=== PATIENT | male | born 1940 | race Caucasian/White ===

== ENCOUNTER 2019-11-12 11:54 | Inpatient (IN) ==
[2019-11-14] MEDS ORDERED: Mag Hydrox/Al Hydrox/Simeth 30 ML UDC PO PRN (14:55)
[2019-11-14] MEDS ORDERED: Ondansetron ODT 4 MG TAB.RAPDIS PO PRN (14:59)
[2019-11-14] MEDS ORDERED: *HR* Dextrose 50 % in Water (Vial) 50 ML VIAL IVP PRN (15:03)
[2019-11-14] MEDS ORDERED: Dextrose Gel 15 GM/37.5 ML TUBE PO PRN ×2 (15:03)
[2019-11-14] MEDS ORDERED: D5% in Water 1,000 ML IVC PRN (15:03)
[2019-11-14] MEDS: Insulin LISPRO 300 UNITS/3 ML VIAL SQ SCH ×2 (16:59→21:23)
[2019-11-14] MEDS: carvediloL 6.25 MG TABLET PO SCH (17:07)
[2019-11-14] MEDS: *HR* OxyCODONE/APAP 5/325 TABLET PO PRN (19:00)
[2019-11-14] MEDS: Acetaminophen 325 MG TABLET PO PRN (21:22)
[2019-11-14] MEDS: Gabapentin 300 MG CAPSULE PO SCH (21:23)
[2019-11-14] MEDS: traZODone 50 MG TABLET PO SCH (22:04)
[2019-11-15] MEDS: Acetaminophen 325 MG TABLET PO PRN (05:36)
[2019-11-15 07:37] LABS: Basophils % 0.5 %; Eosinophils # 0.1 K/mcL (0.0-0.6); Eosinophils % 1.5 %; Hemoglobin 13.9 g/dL (12.9-16.9); Immature Granulocytes % 0.7 % (0-4); Lymphocytes # 1.5 K/mcL (0.6-4.6); Lymphocytes % 25.5 %; Mean Corpuscular HGB Conc 33.1 g/dL (31.6-35.5); Mean Corpuscular Hemoglobin 30.8 pg (28.0-33.3); Mean Corpuscular Volume 93.1 fL (83.0-100.0); Monocytes # 1.1 K/mcL (0.0-1.3); Neutrophils # 3.1 K/mcL (1.6-8.9); Platelet Count 132 K/mcL (140-400); Red Blood Count 4.51 M/mcL (4.19-5.50); Red Cell Distribution Width 13.7 % (11.5-14.5); Segmented Neutrophils % 52.8 %; White Blood Count 5.9 K/mcL (4.3-11.1)
[2019-11-15 07:45] LABS: INR 1.3; Prothrombin Time 14.6 Seconds (9.4-12.1)
[2019-11-15 07:58] LABS: Alanine Aminotransferase 5 Units/L (7-52); Albumin 3.4 g/dL (3.5-5.7); Albumin/Globulin Ratio 1.2 (1.1-2.2); Alkaline Phosphatase 51 Units/L (34-104); Aspartate Amino Transferase 12 Units/L (13-39); BUN/Creatinine Ratio 17 (6-26); Bilirubin,Total 0.9 mg/dL (0.3-1.0); Blood Urea Nitrogen 20 mg/dL (8-23); Calcium 9.2 mg/dL (8.6-10.3); Carbon Dioxide 29 mEq/L (23-29); Chloride 102 mEq/L (98-107); Globulin 2.9 g/dL (2.4-3.5); Glucose 133 mg/dL (70-105); Osmolality,Calculated 287 (280-300); Potassium 3.7 mEq/L (3.5-5.1); Sodium 136 mEq/L (136-145); Total Protein 6.3 g/dL (6.4-8.9); eGFR For African Americans > 60 (> 60); eGFR For Non-African Americans > 60 (> 60)
[2019-11-15] MEDS: *HR* OxyCODONE/APAP 5/325 TABLET PO PRN ×2 (08:03→19:42)
[2019-11-15] MEDS: carvediloL 6.25 MG TABLET PO SCH ×2 (08:03→16:52)
[2019-11-15] MEDS: Insulin LISPRO 300 UNITS/3 ML VIAL SQ SCH ×4 (09:34→21:39)
[2019-11-15] MEDS: PREDNISOLONE ACETATE 1% OP SCH (16:50)
[2019-11-15] MEDS: Gabapentin 300 MG CAPSULE PO SCH (19:43)
[2019-11-15] MEDS: traZODone 50 MG TABLET PO SCH (23:14)
[2019-11-16] MEDS: Acetaminophen 325 MG TABLET PO PRN ×3 (00:35→16:05)
[2019-11-16] MEDS: *HR* OxyCODONE/APAP 5/325 TABLET PO PRN ×2 (06:00→20:07)
[2019-11-16] MEDS: *HR* Enoxaparin 40 MG/0.4 ML SYRINGE SQ SCH (06:12)
[2019-11-16] MEDS: Insulin LISPRO 300 UNITS/3 ML VIAL SQ SCH (07:44)
[2019-11-16] MEDS: Finasteride 5 MG TABLET PO SCH (09:42)
[2019-11-16] MEDS: carvediloL 6.25 MG TABLET PO SCH ×2 (09:42→16:01)
[2019-11-16] MEDS: traZODone 50 MG TABLET PO SCH (20:06)
[2019-11-16] MEDS: Gabapentin 300 MG CAPSULE PO SCH (20:06)
[2019-11-17] MEDS: *HR* Enoxaparin 40 MG/0.4 ML SYRINGE SQ SCH (06:55)
[2019-11-17] MEDS: carvediloL 6.25 MG TABLET PO SCH ×2 (08:00→16:12)
[2019-11-17] MEDS: Finasteride 5 MG TABLET PO SCH (08:00)
[2019-11-17] MEDS: *HR* OxyCODONE/APAP 5/325 TABLET PO PRN ×2 (08:01→20:45)
[2019-11-17] MEDS: PREDNISOLONE ACETATE 1% OP SCH (08:02)
[2019-11-17] MEDS: Acetaminophen 325 MG TABLET PO PRN (16:12)
[2019-11-17] MEDS ORDERED: *HR* OxyCODONE Immed Rel 5 MG TABLET PO ONE (16:22)
[2019-11-17] MEDS: Melatonin 3 MG TABLET PO PRN (20:44)
[2019-11-17] MEDS: Gabapentin 300 MG CAPSULE PO SCH (20:44)
[2019-11-17] MEDS: traZODone 50 MG TABLET PO SCH (20:44)
[2019-11-18] MEDS: *HR* Enoxaparin 40 MG/0.4 ML SYRINGE SQ SCH (06:34)
[2019-11-18] MEDS: Finasteride 5 MG TABLET PO SCH (09:26)
[2019-11-18] MEDS: carvediloL 6.25 MG TABLET PO SCH ×2 (09:26→17:05)
[2019-11-18] MEDS: *HR* OxyCODONE/APAP 5/325 TABLET PO PRN (09:26)
[2019-11-18] MEDS: Gabapentin 300 MG CAPSULE PO SCH (20:16)
[2019-11-18] MEDS: traZODone 50 MG TABLET PO SCH (20:17)
[2019-11-19] MEDS: *HR* OxyCODONE/APAP 5/325 TABLET PO PRN ×2 (03:35→20:24)
[2019-11-19] MEDS: *HR* Enoxaparin 40 MG/0.4 ML SYRINGE SQ SCH (05:05)
[2019-11-19] MEDS: carvediloL 6.25 MG TABLET PO SCH ×2 (08:02→16:19)
[2019-11-19] MEDS: Finasteride 5 MG TABLET PO SCH (08:02)
[2019-11-19] MEDS: PREDNISOLONE ACETATE 1% OP SCH (08:03)
[2019-11-19] MEDS: Acetaminophen 325 MG TABLET PO PRN (11:57)
[2019-11-19] MEDS: Gabapentin 300 MG CAPSULE PO SCH (20:23)
[2019-11-19] MEDS: Melatonin 3 MG TABLET PO PRN (20:24)
[2019-11-19] MEDS: traZODone 50 MG TABLET PO SCH (20:24)
[2019-11-20] MEDS: *HR* Enoxaparin 40 MG/0.4 ML SYRINGE SQ SCH (04:49)
[2019-11-20 05:21] LABS: INR 1.3; Prothrombin Time 14.8 Seconds (9.4-12.1)
[2019-11-20] MEDS: *HR* OxyCODONE/APAP 5/325 TABLET PO PRN ×2 (09:25→22:08)
[2019-11-20] MEDS: Finasteride 5 MG TABLET PO SCH (09:25)
[2019-11-20] MEDS: carvediloL 6.25 MG TABLET PO SCH ×2 (09:25→17:28)
[2019-11-20] MEDS ORDERED: Doxycycline 100 MG CAPSULE PO SCH (12:30)
[2019-11-20] MEDS: *HR* Warfarin 5 MG TABLET PO SCH (17:28)
[2019-11-20] MEDS ORDERED: Warfarin perPT PO PRN (18:00)
[2019-11-20 18:43] LABS: Basophils # 0.1 K/mcL (0.0-0.2); Basophils % 0.7 %; Eosinophils # 0.1 K/mcL (0.0-0.6); Eosinophils % 1.3 %; Hematocrit 42.7 % (37.5-50.1); Hemoglobin 14.2 g/dL (12.9-16.9); Immature Granulocytes % 0.3 % (0-4); Lymphocytes # 1.8 K/mcL (0.6-4.6); Lymphocytes % 25.8 %; Mean Corpuscular HGB Conc 33.3 g/dL (31.6-35.5); Mean Corpuscular Volume 93.2 fL (83.0-100.0); Mean Platelet Volume 10.5 fL (9.4-12.4); Monocytes # 1.3 K/mcL (0.0-1.3); Monocytes % 18.6 %; Neutrophils # 3.7 K/mcL (1.6-8.9); Platelet Count 159 K/mcL (140-400); Red Blood Count 4.58 M/mcL (4.19-5.50); Red Cell Distribution Width 13.1 % (11.5-14.5); Segmented Neutrophils % 53.3 %; White Blood Count 6.9 K/mcL (4.3-11.1)
[2019-11-20] MEDS ORDERED: Piperacillin/Tazobactam 3.375 GM in 0.9 % Sodium Chloride Mini Bag 100 ML IVPB SCH (19:00)
[2019-11-20 19:01] LABS: BUN/Creatinine Ratio 22 (6-26); Blood Urea Nitrogen 24 mg/dL (8-23); Calcium 9.3 mg/dL (8.6-10.3); Carbon Dioxide 34 mEq/L (23-29); Chloride 98 mEq/L (98-107); Glucose 107 mg/dL (70-105); Osmolality,Calculated 289 (280-300); Potassium 4.1 mEq/L (3.5-5.1); Sodium 137 mEq/L (136-145); eGFR For African Americans > 60 (> 60); eGFR For Non-African Americans > 60 (> 60)
[2019-11-20] MEDS ORDERED: Vancomycin 500 MG in 0.9 % Sodium Chloride Mini Bag 100 ML IVPB ONE (20:30)
[2019-11-20] MEDS: Gabapentin 300 MG CAPSULE PO SCH (20:31)
[2019-11-20] MEDS: traZODone 50 MG TABLET PO SCH (20:31)
[2019-11-20] MEDS: Melatonin 3 MG TABLET PO PRN (20:31)
[2019-11-20] MEDS: Piperacillin/Tazobactam 3.375 GM in 0.9 % Sodium Chloride Mini Bag 100 ML IVPB SCH (22:11)
[2019-11-21] MEDS: Piperacillin/Tazobactam 3.375 GM in 0.9 % Sodium Chloride Mini Bag 100 ML IVPB SCH ×3 (05:27→21:51)
[2019-11-21] MEDS: *HR* Enoxaparin 40 MG/0.4 ML SYRINGE SQ SCH (05:38)
[2019-11-21 06:06] LABS: INR 1.2
[2019-11-21 06:34] LABS: Thyroid Stimulating Hormone 1.578 mcIU/mL (0.340-5.600)
[2019-11-21] MEDS: Multivit/Ca/Min/Fe/FA 1 TAB TABLET PO SCH (08:50)
[2019-11-21] MEDS: Ascorbic Acid 500 MG TABLET PO SCH ×2 (08:50→20:19)
[2019-11-21] MEDS: Finasteride 5 MG TABLET PO SCH (08:51)
[2019-11-21] MEDS: carvediloL 6.25 MG TABLET PO SCH ×2 (08:51→16:17)
[2019-11-21] MEDS: Lactobacillus 1 EACH CAP.SPRINK PO SCH ×2 (08:51→20:15)
[2019-11-21] MEDS: *HR* OxyCODONE/APAP 5/325 TABLET PO PRN ×2 (09:52→23:07)
[2019-11-21] MEDS: Nystatin Ointment 15 GM TUBE TP SCH ×2 (09:54→20:21)
[2019-11-21] MEDS: PREDNISOLONE ACETATE 1% OP SCH (09:54)
[2019-11-21 13:56] LABS: Vitamin B12 295 pg/mL (250-1100); Vitamin D 25 Hydroxy 39 ng/mL (30-80)
[2019-11-21] MEDS: Acetaminophen 325 MG TABLET PO PRN (15:38)
[2019-11-21] MEDS ORDERED: Cyanocobalamin (B-12) 1,000 MCG/ML VIAL SQ ONE (16:28)
[2019-11-21] MEDS ORDERED: Vancomycin (wt based) 1,000 MG VIAL IVPB SCH (16:30)
[2019-11-21] MEDS: *HR* Warfarin 5 MG TABLET PO SCH (17:48)
[2019-11-21] MEDS: traZODone 50 MG TABLET PO SCH (20:17)
[2019-11-21] MEDS: Gabapentin 300 MG CAPSULE PO SCH (20:17)
[2019-11-22] MEDS: Piperacillin/Tazobactam 3.375 GM in 0.9 % Sodium Chloride Mini Bag 100 ML IVPB SCH ×3 (05:32→22:29)
[2019-11-22] MEDS: *HR* Enoxaparin 40 MG/0.4 ML SYRINGE SQ SCH (05:37)
[2019-11-22] MEDS: carvediloL 6.25 MG TABLET PO SCH ×2 (09:21→17:44)
[2019-11-22] MEDS: Multivit/Ca/Min/Fe/FA 1 TAB TABLET PO SCH (09:21)
[2019-11-22] MEDS: Lactobacillus 1 EACH CAP.SPRINK PO SCH ×2 (09:21→22:31)
[2019-11-22] MEDS: Finasteride 5 MG TABLET PO SCH (09:21)
[2019-11-22] MEDS: Cyanocobalamin (B-12) 1,000 MCG TABLET PO SCH (09:21)
[2019-11-22] MEDS: Ascorbic Acid 500 MG TABLET PO SCH ×2 (09:21→22:31)
[2019-11-22] MEDS: Nystatin Ointment 15 GM TUBE TP SCH ×2 (09:22→22:31)
[2019-11-22 09:25] LABS: INR 1.4; Prothrombin Time 15.4 Seconds (9.4-12.1)
[2019-11-22] MEDS: *HR* OxyCODONE/APAP 5/325 TABLET PO PRN ×2 (09:29→21:51)
[2019-11-22 09:36] LABS: BUN/Creatinine Ratio 13 (6-26); Blood Urea Nitrogen 16 mg/dL (8-23); Calcium 9.5 mg/dL (8.6-10.3); Carbon Dioxide 32 mEq/L (23-29); Chloride 99 mEq/L (98-107); Glucose 166 mg/dL (70-105); Osmolality,Calculated 291 (280-300); Potassium 4.2 mEq/L (3.5-5.1); Sodium 138 mEq/L (136-145); eGFR For African Americans > 60 (> 60); eGFR For Non-African Americans 57 (> 60)
[2019-11-22] MEDS: *HR* Warfarin 5 MG TABLET PO SCH (17:44)
[2019-11-22] MEDS: Gabapentin 300 MG CAPSULE PO SCH (22:30)
[2019-11-22] MEDS: traZODone 50 MG TABLET PO SCH (22:31)
[2019-11-23] MEDS: Piperacillin/Tazobactam 3.375 GM in 0.9 % Sodium Chloride Mini Bag 100 ML IVPB SCH ×3 (05:05→19:56)
[2019-11-23] MEDS: *HR* Enoxaparin 40 MG/0.4 ML SYRINGE SQ SCH (05:06)
[2019-11-23 06:39] LABS: INR 1.4; Prothrombin Time 15.6 Seconds (9.4-12.1)
[2019-11-23] MEDS: Multivit/Ca/Min/Fe/FA 1 TAB TABLET PO SCH (09:03)
[2019-11-23] MEDS: Finasteride 5 MG TABLET PO SCH (09:03)
[2019-11-23] MEDS: carvediloL 6.25 MG TABLET PO SCH ×2 (09:03→16:17)
[2019-11-23] MEDS: Ascorbic Acid 500 MG TABLET PO SCH ×2 (09:04→19:55)
[2019-11-23] MEDS: Lactobacillus 1 EACH CAP.SPRINK PO SCH ×2 (09:04→19:56)
[2019-11-23] MEDS: Cyanocobalamin (B-12) 1,000 MCG TABLET PO SCH (09:04)
[2019-11-23] MEDS: PREDNISOLONE ACETATE 1% OP SCH (09:05)
[2019-11-23] MEDS: Nystatin Ointment 15 GM TUBE TP SCH ×2 (09:05→19:56)
[2019-11-23] MEDS: *HR* OxyCODONE/APAP 5/325 TABLET PO PRN (12:06)
[2019-11-23] MEDS ORDERED: *HR* Warfarin 2.5 MG TABLET PO SCH (18:00)
[2019-11-23] MEDS ORDERED: *HR* Warfarin 3 MG TABLET PO ONE (18:00)
[2019-11-23] MEDS ORDERED: *HR* Warfarin 1 MG TABLET PO ONE (18:00)
[2019-11-23] MEDS: Acetaminophen 325 MG TABLET PO PRN (19:55)
[2019-11-23] MEDS: traZODone 50 MG TABLET PO SCH (19:55)
[2019-11-23] MEDS: Gabapentin 300 MG CAPSULE PO SCH (19:56)
[2019-11-24] MEDS: *HR* OxyCODONE/APAP 5/325 TABLET PO PRN ×2 (02:17→19:58)
[2019-11-24] MEDS: Piperacillin/Tazobactam 3.375 GM in 0.9 % Sodium Chloride Mini Bag 100 ML IVPB SCH ×3 (04:55→22:01)
[2019-11-24] MEDS: *HR* Enoxaparin 40 MG/0.4 ML SYRINGE SQ SCH (04:56)
[2019-11-24 06:01] LABS: INR 1.4; Prothrombin Time 15.6 Seconds (9.4-12.1)
[2019-11-24] MEDS: Cyanocobalamin (B-12) 1,000 MCG TABLET PO SCH (08:28)
[2019-11-24] MEDS: Nystatin Ointment 15 GM TUBE TP SCH ×2 (08:28→19:58)
[2019-11-24] MEDS: carvediloL 6.25 MG TABLET PO SCH ×2 (08:28→17:16)
[2019-11-24] MEDS: Ascorbic Acid 500 MG TABLET PO SCH ×2 (08:28→19:58)
[2019-11-24] MEDS: Multivit/Ca/Min/Fe/FA 1 TAB TABLET PO SCH (08:28)
[2019-11-24] MEDS: Lactobacillus 1 EACH CAP.SPRINK PO SCH ×2 (08:28→19:58)
[2019-11-24] MEDS: Finasteride 5 MG TABLET PO SCH (08:28)
[2019-11-24] MEDS ORDERED: Simethicone 80 MG TAB.CHEW PO PRN (14:44)
[2019-11-24] MEDS ORDERED: *HR* Warfarin 7.5 MG TABLET PO ONE (18:00)
[2019-11-24] MEDS: Gabapentin 300 MG CAPSULE PO SCH (19:58)
[2019-11-24] MEDS: traZODone 50 MG TABLET PO SCH (19:58)
[2019-11-24] MEDS: Acetaminophen 325 MG TABLET PO PRN (23:20)
[2019-11-25 05:46] LABS: INR 1.6; Prothrombin Time 17.8 Seconds (9.4-12.1)
[2019-11-25 05:59] LABS: eGFR For African Americans > 60 (> 60); eGFR For Non-African Americans > 60 (> 60)
[2019-11-25] MEDS: *HR* Enoxaparin 40 MG/0.4 ML SYRINGE SQ SCH (06:00)
[2019-11-25] MEDS: Piperacillin/Tazobactam 3.375 GM in 0.9 % Sodium Chloride Mini Bag 100 ML IVPB SCH (06:00)
[2019-11-25] MEDS ORDERED: Aminoglycoside Consult 1 EACH MC ONE (08:46)
[2019-11-25] MEDS: Finasteride 5 MG TABLET PO SCH (10:07)
[2019-11-25] MEDS: Multivit/Ca/Min/Fe/FA 1 TAB TABLET PO SCH (10:07)
[2019-11-25] MEDS: Lactobacillus 1 EACH CAP.SPRINK PO SCH ×2 (10:07→21:43)
[2019-11-25] MEDS: PREDNISOLONE ACETATE 1% OP SCH (10:08)
[2019-11-25] MEDS: carvediloL 6.25 MG TABLET PO SCH ×2 (10:08→16:45)
[2019-11-25] MEDS: Cyanocobalamin (B-12) 1,000 MCG TABLET PO SCH (10:08)
[2019-11-25] MEDS: Ascorbic Acid 500 MG TABLET PO SCH ×2 (10:08→21:43)
[2019-11-25] MEDS: Nystatin Ointment 15 GM TUBE TP SCH ×2 (10:09→22:01)
[2019-11-25] MEDS: *HR* OxyCODONE/APAP 5/325 TABLET PO PRN (15:04)
[2019-11-25] MEDS ORDERED: *HR* Warfarin 5 MG TABLET PO ONE (18:00)
[2019-11-25 18:17] LABS: Basophils # 0.1 K/mcL (0.0-0.2); Basophils % 0.9 %; Eosinophils # 0.2 K/mcL (0.0-0.6); Eosinophils % 2.5 %; Hematocrit 43.9 % (37.5-50.1); Hemoglobin 14.8 g/dL (12.9-16.9); Immature Granulocytes % 0.3 % (0-4); Lymphocytes # 1.8 K/mcL (0.6-4.6); Lymphocytes % 28.3 %; Mean Corpuscular HGB Conc 33.7 g/dL (31.6-35.5); Mean Corpuscular Hemoglobin 31.4 pg (28.0-33.3); Mean Platelet Volume 10.1 fL (9.4-12.4); Monocytes # 0.9 K/mcL (0.0-1.3); Monocytes % 14.2 %; Neutrophils # 3.4 K/mcL (1.6-8.9); Platelet Count 204 K/mcL (140-400); Red Blood Count 4.72 M/mcL (4.19-5.50); Red Cell Distribution Width 12.9 % (11.5-14.5); Segmented Neutrophils % 53.8 %; White Blood Count 6.3 K/mcL (4.3-11.1)
[2019-11-25] MEDS: Acetaminophen 325 MG TABLET PO PRN ×2 (18:48→23:03)
[2019-11-25] MEDS: Melatonin 3 MG TABLET PO PRN (21:43)
[2019-11-25] MEDS: Doxycycline 100 MG CAPSULE PO SCH (21:43)
[2019-11-25] MEDS: Gabapentin 300 MG CAPSULE PO SCH (21:43)
[2019-11-25] MEDS: traZODone 50 MG TABLET PO SCH (21:43)
[2019-11-26] MEDS: *HR* Enoxaparin 40 MG/0.4 ML SYRINGE SQ SCH (05:03)
[2019-11-26] MEDS: *HR* OxyCODONE/APAP 5/325 TABLET PO PRN ×2 (05:04→17:56)
[2019-11-26 05:31] LABS: Prothrombin Time 22.5 Seconds (9.4-12.1)
[2019-11-26] MEDS: carvediloL 6.25 MG TABLET PO SCH ×2 (09:40→17:56)
[2019-11-26] MEDS: Multivit/Ca/Min/Fe/FA 1 TAB TABLET PO SCH (09:40)
[2019-11-26] MEDS: Cyanocobalamin (B-12) 1,000 MCG TABLET PO SCH (09:40)
[2019-11-26] MEDS: Doxycycline 100 MG CAPSULE PO SCH ×2 (09:40→21:13)
[2019-11-26] MEDS: Lactobacillus 1 EACH CAP.SPRINK PO SCH ×2 (09:40→21:13)
[2019-11-26] MEDS: Ascorbic Acid 500 MG TABLET PO SCH ×2 (09:40→21:13)
[2019-11-26] MEDS: Finasteride 5 MG TABLET PO SCH (09:40)
[2019-11-26] MEDS: Nystatin Ointment 15 GM TUBE TP SCH ×2 (09:41→21:20)
[2019-11-26] MEDS ORDERED: *HR* Warfarin 5 MG TABLET PO ONE (18:00)
[2019-11-26] MEDS: traZODone 50 MG TABLET PO SCH (21:13)
[2019-11-26] MEDS: Melatonin 3 MG TABLET PO PRN (21:13)
[2019-11-26] MEDS: Gabapentin 300 MG CAPSULE PO SCH (21:13)
[2019-11-27] MEDS: *HR* Enoxaparin 40 MG/0.4 ML SYRINGE SQ SCH (04:24)
[2019-11-27] MEDS: Ascorbic Acid 500 MG TABLET PO SCH ×2 (07:25→20:09)
[2019-11-27] MEDS: Doxycycline 100 MG CAPSULE PO SCH ×2 (07:25→20:09)
[2019-11-27] MEDS: Finasteride 5 MG TABLET PO SCH (07:25)
[2019-11-27] MEDS: *HR* OxyCODONE/APAP 5/325 TABLET PO PRN ×2 (07:25→20:10)
[2019-11-27] MEDS: carvediloL 6.25 MG TABLET PO SCH ×2 (07:26→16:30)
[2019-11-27] MEDS: Multivit/Ca/Min/Fe/FA 1 TAB TABLET PO SCH (07:26)
[2019-11-27] MEDS: Lactobacillus 1 EACH CAP.SPRINK PO SCH ×2 (07:26→20:09)
[2019-11-27] MEDS: Nystatin Ointment 15 GM TUBE TP SCH ×2 (07:26→20:10)
[2019-11-27] MEDS: Cyanocobalamin (B-12) 1,000 MCG TABLET PO SCH (07:26)
[2019-11-27] MEDS: PREDNISOLONE ACETATE 1% OP SCH (07:30)
[2019-11-27] MEDS ORDERED: *HR* Warfarin 3 MG TABLET PO ONE (18:00)
[2019-11-27] MEDS: Gabapentin 300 MG CAPSULE PO SCH (20:09)
[2019-11-27] MEDS: Melatonin 3 MG TABLET PO PRN (20:09)
[2019-11-27] MEDS: traZODone 50 MG TABLET PO SCH (20:09)
[2019-11-28 05:45] LABS: INR 2.1; Prothrombin Time 23.5 Seconds (9.4-12.1)
[2019-11-28] MEDS: Finasteride 5 MG TABLET PO SCH (08:17)
[2019-11-28] MEDS: Lactobacillus 1 EACH CAP.SPRINK PO SCH ×2 (08:17→20:04)
[2019-11-28] MEDS: carvediloL 6.25 MG TABLET PO SCH ×2 (08:17→16:35)
[2019-11-28] MEDS: Doxycycline 100 MG CAPSULE PO SCH ×2 (08:17→20:04)
[2019-11-28] MEDS: *HR* OxyCODONE/APAP 5/325 TABLET PO PRN ×2 (08:17→20:13)
[2019-11-28] MEDS: Cyanocobalamin (B-12) 1,000 MCG TABLET PO SCH (08:17)
[2019-11-28] MEDS: Multivit/Ca/Min/Fe/FA 1 TAB TABLET PO SCH (08:17)
[2019-11-28] MEDS: Ascorbic Acid 500 MG TABLET PO SCH ×2 (08:17→20:05)
[2019-11-28] MEDS: Nystatin Ointment 15 GM TUBE TP SCH ×2 (08:20→20:14)
[2019-11-28] MEDS ORDERED: *HR* Warfarin 3 MG TABLET PO ONE (18:00)
[2019-11-28] MEDS: Gabapentin 300 MG CAPSULE PO SCH (20:05)
[2019-11-28] MEDS: traZODone 50 MG TABLET PO SCH (20:06)
[2019-11-28] MEDS: Melatonin 3 MG TABLET PO PRN (20:10)
[2019-11-29 06:08] LABS: INR 2.2; Prothrombin Time 25.2 Seconds (9.4-12.1)
[2019-11-29] MEDS: Ascorbic Acid 500 MG TABLET PO SCH ×2 (09:05→21:29)
[2019-11-29] MEDS: Cyanocobalamin (B-12) 1,000 MCG TABLET PO SCH (09:05)
[2019-11-29] MEDS: carvediloL 6.25 MG TABLET PO SCH ×2 (09:05→16:46)
[2019-11-29] MEDS: Doxycycline 100 MG CAPSULE PO SCH ×2 (09:05→21:27)
[2019-11-29] MEDS: Multivit/Ca/Min/Fe/FA 1 TAB TABLET PO SCH (09:05)
[2019-11-29] MEDS: *HR* OxyCODONE/APAP 5/325 TABLET PO PRN ×2 (09:05→18:23)
[2019-11-29] MEDS: Finasteride 5 MG TABLET PO SCH (09:06)
[2019-11-29] MEDS: Lactobacillus 1 EACH CAP.SPRINK PO SCH ×2 (09:06→21:27)
[2019-11-29] MEDS: Nystatin Ointment 15 GM TUBE TP SCH ×2 (09:06→21:31)
[2019-11-29] MEDS: PREDNISOLONE ACETATE 1% OP SCH (09:07)
[2019-11-29 09:45] LABS: Basophils % 0.7 %; Eosinophils # 0.1 K/mcL (0.0-0.6); Eosinophils % 1.5 %; Hematocrit 43.5 % (37.5-50.1); Hemoglobin 14.4 g/dL (12.9-16.9); Immature Granulocytes % 0.5 % (0-4); Lymphocytes # 1.2 K/mcL (0.6-4.6); Mean Corpuscular HGB Conc 33.1 g/dL (31.6-35.5); Mean Corpuscular Hemoglobin 30.8 pg (28.0-33.3); Mean Corpuscular Volume 92.9 fL (83.0-100.0); Monocytes % 16.7 %; Neutrophils # 3.5 K/mcL (1.6-8.9); Platelet Count 197 K/mcL (140-400); Red Blood Count 4.68 M/mcL (4.19-5.50); Red Cell Distribution Width 13.3 % (11.5-14.5); Segmented Neutrophils % 60.6 %; White Blood Count 5.8 K/mcL (4.3-11.1)
[2019-11-29 10:10] LABS: Alanine Aminotransferase 38 Units/L (7-52); Albumin 3.6 g/dL (3.5-5.7); Albumin/Globulin Ratio 1.2 (1.1-2.2); Alkaline Phosphatase 65 Units/L (34-104); Aspartate Amino Transferase 33 Units/L (13-39); BUN/Creatinine Ratio 21 (6-26); Bilirubin,Total 0.5 mg/dL (0.3-1.0); Blood Urea Nitrogen 23 mg/dL (8-23); Calcium 9.4 mg/dL (8.6-10.3); Carbon Dioxide 30 mEq/L (23-29); Chloride 99 mEq/L (98-107); Globulin 2.9 g/dL (2.4-3.5); Glucose 151 mg/dL (70-105); Osmolality,Calculated 285 (280-300); Sodium 134 mEq/L (136-145); Total Protein 6.5 g/dL (6.4-8.9); eGFR For African Americans > 60 (> 60); eGFR For Non-African Americans > 60 (> 60)
[2019-11-29] MEDS: Acetaminophen 325 MG TABLET PO PRN (16:46)
[2019-11-29] MEDS ORDERED: *HR* Warfarin 3 MG TABLET PO ONE (18:00)
[2019-11-29] MEDS: Gabapentin 300 MG CAPSULE PO SCH (21:28)
[2019-11-29] MEDS: traZODone 50 MG TABLET PO SCH (21:28)
[2019-11-29] MEDS: Melatonin 3 MG TABLET PO PRN (21:30)
[2019-11-30] MEDS: *HR* OxyCODONE/APAP 5/325 TABLET PO PRN ×4 (01:58→20:39)
[2019-11-30 05:57] LABS: INR 2.5
[2019-11-30] MEDS: Doxycycline 100 MG CAPSULE PO SCH ×2 (07:59→20:38)
[2019-11-30] MEDS: Ascorbic Acid 500 MG TABLET PO SCH ×2 (08:00→20:40)
[2019-11-30] MEDS: Finasteride 5 MG TABLET PO SCH (08:00)
[2019-11-30] MEDS: Multivit/Ca/Min/Fe/FA 1 TAB TABLET PO SCH (08:00)
[2019-11-30] MEDS: Cyanocobalamin (B-12) 1,000 MCG TABLET PO SCH (08:00)
[2019-11-30] MEDS: Lactobacillus 1 EACH CAP.SPRINK PO SCH ×2 (08:00→20:38)
[2019-11-30] MEDS: carvediloL 6.25 MG TABLET PO SCH ×2 (08:00→17:49)
[2019-11-30] MEDS: Nystatin Ointment 15 GM TUBE TP SCH ×2 (08:04→20:39)
[2019-11-30] MEDS ORDERED: *HR* Warfarin 5 MG TABLET PO ONE (18:00)
[2019-11-30] MEDS: Gabapentin 300 MG CAPSULE PO SCH (20:39)
[2019-11-30] MEDS: Melatonin 3 MG TABLET PO PRN (20:40)
[2019-11-30] MEDS: traZODone 50 MG TABLET PO SCH (20:41)
[2019-12-01 05:28] LABS: INR 2.5; Prothrombin Time 28.8 Seconds (9.4-12.1)
[2019-12-01] MEDS: *HR* OxyCODONE/APAP 5/325 TABLET PO PRN ×2 (06:24→16:47)
[2019-12-01] MEDS: Cyanocobalamin (B-12) 1,000 MCG TABLET PO SCH (09:21)
[2019-12-01] MEDS: Multivit/Ca/Min/Fe/FA 1 TAB TABLET PO SCH (09:21)
[2019-12-01] MEDS: Finasteride 5 MG TABLET PO SCH (09:21)
[2019-12-01] MEDS: Lactobacillus 1 EACH CAP.SPRINK PO SCH ×2 (09:21→21:01)
[2019-12-01] MEDS: Ascorbic Acid 500 MG TABLET PO SCH ×2 (09:21→21:06)
[2019-12-01] MEDS: carvediloL 6.25 MG TABLET PO SCH ×2 (09:21→16:47)
[2019-12-01] MEDS: Doxycycline 100 MG CAPSULE PO SCH ×2 (09:21→21:01)
[2019-12-01] MEDS: Nystatin Ointment 15 GM TUBE TP SCH ×2 (09:22→21:06)
[2019-12-01] MEDS: PREDNISOLONE ACETATE 1% OP SCH (09:25)
[2019-12-01] MEDS ORDERED: *HR* Warfarin 5 MG TABLET PO ONE (18:00)
[2019-12-01] MEDS: Gabapentin 300 MG CAPSULE PO SCH (21:02)
[2019-12-01] MEDS: traZODone 50 MG TABLET PO SCH (21:02)
[2019-12-01] MEDS: Melatonin 3 MG TABLET PO PRN (21:06)
[2019-12-02] MEDS: *HR* OxyCODONE/APAP 5/325 TABLET PO PRN ×2 (05:41→17:43)
[2019-12-02 05:49] LABS: INR 2.6; Prothrombin Time 29.9 Seconds (9.4-12.1)
[2019-12-02] MEDS: Multivit/Ca/Min/Fe/FA 1 TAB TABLET PO SCH (09:09)
[2019-12-02] MEDS: Finasteride 5 MG TABLET PO SCH (09:09)
[2019-12-02] MEDS: Cyanocobalamin (B-12) 1,000 MCG TABLET PO SCH (09:09)
[2019-12-02] MEDS: Lactobacillus 1 EACH CAP.SPRINK PO SCH ×2 (09:09→21:22)
[2019-12-02] MEDS: carvediloL 6.25 MG TABLET PO SCH ×2 (09:09→17:39)
[2019-12-02] MEDS: Ascorbic Acid 500 MG TABLET PO SCH ×2 (09:09→21:21)
[2019-12-02] MEDS: Doxycycline 100 MG CAPSULE PO SCH ×2 (09:09→21:22)
[2019-12-02] MEDS: Nystatin Ointment 15 GM TUBE TP SCH ×2 (11:36→21:23)
[2019-12-02] MEDS ORDERED: *HR* Warfarin 5 MG TABLET PO ONE (18:00)
[2019-12-02] MEDS: traZODone 50 MG TABLET PO SCH (21:21)
[2019-12-02] MEDS: Acetaminophen 325 MG TABLET PO PRN (21:22)
[2019-12-02] MEDS: Gabapentin 300 MG CAPSULE PO SCH (21:22)
[2019-12-03] MEDS: *HR* OxyCODONE/APAP 5/325 TABLET PO PRN ×3 (00:47→21:22)
[2019-12-03 06:17] LABS: INR 2.9; Prothrombin Time 32.6 Seconds (9.4-12.1)
[2019-12-03] MEDS: Cyanocobalamin (B-12) 1,000 MCG TABLET PO SCH (09:27)
[2019-12-03] MEDS: Multivit/Ca/Min/Fe/FA 1 TAB TABLET PO SCH (09:27)
[2019-12-03] MEDS: carvediloL 6.25 MG TABLET PO SCH ×2 (09:27→17:24)
[2019-12-03] MEDS: Doxycycline 100 MG CAPSULE PO SCH ×2 (09:27→20:11)
[2019-12-03] MEDS: Finasteride 5 MG TABLET PO SCH (09:27)
[2019-12-03] MEDS: Ascorbic Acid 500 MG TABLET PO SCH ×2 (09:28→20:13)
[2019-12-03] MEDS: Lactobacillus 1 EACH CAP.SPRINK PO SCH ×2 (09:28→20:11)
[2019-12-03] MEDS: Nystatin Ointment 15 GM TUBE TP SCH ×2 (09:28→20:15)
[2019-12-03] MEDS: PREDNISOLONE ACETATE 1% OP SCH (09:32)
[2019-12-03] MEDS: Acetaminophen 325 MG TABLET PO PRN (17:31)
[2019-12-03] MEDS ORDERED: *HR* Warfarin 2.5 MG TABLET PO ONE (18:00)
[2019-12-03] MEDS: Gabapentin 300 MG CAPSULE PO SCH (20:12)
[2019-12-03] MEDS: traZODone 50 MG TABLET PO SCH (20:12)
[2019-12-04 04:58] LABS: INR 3.1; Prothrombin Time 34.8 Seconds (9.4-12.1)
[2019-12-04] MEDS: *HR* OxyCODONE/APAP 5/325 TABLET PO PRN ×2 (05:00→16:07)
[2019-12-04] MEDS: Ascorbic Acid 500 MG TABLET PO SCH ×2 (09:17→21:30)
[2019-12-04] MEDS: Lactobacillus 1 EACH CAP.SPRINK PO SCH ×2 (09:17→21:31)
[2019-12-04] MEDS: carvediloL 6.25 MG TABLET PO SCH ×2 (09:18→17:28)
[2019-12-04] MEDS: Doxycycline 100 MG CAPSULE PO SCH (09:18)
[2019-12-04] MEDS: Multivit/Ca/Min/Fe/FA 1 TAB TABLET PO SCH (09:18)
[2019-12-04] MEDS: Finasteride 5 MG TABLET PO SCH (09:18)
[2019-12-04] MEDS: Cyanocobalamin (B-12) 1,000 MCG TABLET PO SCH (09:18)
[2019-12-04] MEDS: Nystatin Ointment 15 GM TUBE TP SCH ×2 (09:20→21:34)
[2019-12-04] MEDS ORDERED: *HR* Warfarin 2.5 MG TABLET PO ONE (18:00)
[2019-12-04] MEDS: Melatonin 3 MG TABLET PO PRN (21:30)
[2019-12-04] MEDS: Gabapentin 300 MG CAPSULE PO SCH (21:30)
[2019-12-04] MEDS: traZODone 50 MG TABLET PO SCH (21:32)
[2019-12-05] MEDS: *HR* OxyCODONE/APAP 5/325 TABLET PO PRN ×4 (01:09→23:09)
[2019-12-05 06:00] LABS: Hemoglobin 13.6 g/dL (12.9-16.9); Mean Corpuscular HGB Conc 33.2 g/dL (31.6-35.5); Mean Corpuscular Hemoglobin 30.8 pg (28.0-33.3); Mean Corpuscular Volume 92.8 fL (83.0-100.0); Mean Platelet Volume 9.9 fL (9.4-12.4); Platelet Count 163 K/mcL (140-400); Red Blood Count 4.42 M/mcL (4.19-5.50); Red Cell Distribution Width 13.1 % (11.5-14.5); White Blood Count 4.4 K/mcL (4.3-11.1)
[2019-12-05 06:06] LABS: INR 2.8; Prothrombin Time 31.7 Seconds (9.4-12.1)
[2019-12-05 06:18] LABS: Alanine Aminotransferase 21 Units/L (7-52); Albumin 3.7 g/dL (3.5-5.7); Albumin/Globulin Ratio 1.5 (1.1-2.2); Alkaline Phosphatase 63 Units/L (34-104); Aspartate Amino Transferase 20 Units/L (13-39); BUN/Creatinine Ratio 25 (6-26); Bilirubin,Total 0.6 mg/dL (0.3-1.0); Blood Urea Nitrogen 29 mg/dL (8-23); Calcium 9.4 mg/dL (8.6-10.3); Carbon Dioxide 30 mEq/L (23-29); Chloride 100 mEq/L (98-107); Globulin 2.5 g/dL (2.4-3.5); Glucose 117 mg/dL (70-105); Magnesium 2.2 mg/dL (1.6-2.6); Osmolality,Calculated 287 (280-300); Potassium 4.3 mEq/L (3.5-5.1); Sodium 135 mEq/L (136-145); Total Protein 6.2 g/dL (6.4-8.9); eGFR For African Americans > 60 (> 60); eGFR For Non-African Americans > 60 (> 60)
[2019-12-05] MEDS: Nystatin Ointment 15 GM TUBE TP SCH ×2 (08:04→20:05)
[2019-12-05] MEDS: Ascorbic Acid 500 MG TABLET PO SCH ×2 (08:04→20:04)
[2019-12-05] MEDS: carvediloL 6.25 MG TABLET PO SCH ×2 (08:04→16:40)
[2019-12-05] MEDS: Multivit/Ca/Min/Fe/FA 1 TAB TABLET PO SCH (08:04)
[2019-12-05] MEDS: Lactobacillus 1 EACH CAP.SPRINK PO SCH ×2 (08:04→20:04)
[2019-12-05] MEDS: Finasteride 5 MG TABLET PO SCH (08:04)
[2019-12-05] MEDS: PREDNISOLONE ACETATE 1% OP SCH (08:04)
[2019-12-05] MEDS: Cyanocobalamin (B-12) 1,000 MCG TABLET PO SCH (08:04)
[2019-12-05] MEDS ORDERED: *HR* Warfarin 2.5 MG TABLET PO ONE (18:00)
[2019-12-05 18:52] LABS: Bilirubin,Urine Negative (Negative); Blood,Urine Negative (Negative); Clarity,Urine Clear (Clear); Color,Urine Yellow (Yellow); Glucose,Urine (UA) Normal (Normal); Ketones,Urine Negative (Negative); Leukocyte Esterase,Urine Negative (Negative); Nitrite,Urine Negative (Negative); Protein,Urine Negative (Neg-Trace); Urobilinogen,Urine Normal (Normal)
[2019-12-05] MEDS: traZODone 50 MG TABLET PO SCH (20:04)
[2019-12-05] MEDS: Gabapentin 300 MG CAPSULE PO SCH (20:04)
[2019-12-05] MEDS: Acetaminophen 325 MG TABLET PO PRN (20:04)
[2019-12-06 05:00] LABS: INR 2.5; Prothrombin Time 28.1 Seconds (9.4-12.1)
[2019-12-06] MEDS: Lactobacillus 1 EACH CAP.SPRINK PO SCH ×2 (08:37→20:08)
[2019-12-06] MEDS: Finasteride 5 MG TABLET PO SCH (08:37)
[2019-12-06] MEDS: *HR* OxyCODONE/APAP 5/325 TABLET PO PRN ×3 (08:38→22:30)
[2019-12-06] MEDS: Multivit/Ca/Min/Fe/FA 1 TAB TABLET PO SCH (08:38)
[2019-12-06] MEDS: Ascorbic Acid 500 MG TABLET PO SCH ×2 (08:38→20:08)
[2019-12-06] MEDS: Cyanocobalamin (B-12) 1,000 MCG TABLET PO SCH (08:38)
[2019-12-06] MEDS: Nystatin Ointment 15 GM TUBE TP SCH ×2 (08:39→20:08)
[2019-12-06] MEDS: carvediloL 6.25 MG TABLET PO SCH ×2 (08:39→16:45)
[2019-12-06] MEDS ORDERED: *HR* Warfarin 2.5 MG TABLET PO ONE (18:00)
[2019-12-06] MEDS: Melatonin 3 MG TABLET PO PRN (20:08)
[2019-12-06] MEDS: Acetaminophen 325 MG TABLET PO PRN (20:09)
[2019-12-06] MEDS: Gabapentin 300 MG CAPSULE PO SCH (20:09)
[2019-12-06] MEDS: traZODone 50 MG TABLET PO SCH (20:09)
[2019-12-07 06:31] LABS: INR 2.5
[2019-12-07] MEDS: Nystatin Ointment 15 GM TUBE TP SCH ×2 (08:04→22:02)
[2019-12-07] MEDS: PREDNISOLONE ACETATE 1% OP SCH (08:06)
[2019-12-07] MEDS: Finasteride 5 MG TABLET PO SCH (09:17)
[2019-12-07] MEDS: Ascorbic Acid 500 MG TABLET PO SCH ×2 (09:17→22:01)
[2019-12-07] MEDS: Lactobacillus 1 EACH CAP.SPRINK PO SCH ×2 (09:17→22:01)
[2019-12-07] MEDS: Cyanocobalamin (B-12) 1,000 MCG TABLET PO SCH (09:17)
[2019-12-07] MEDS: carvediloL 6.25 MG TABLET PO SCH ×2 (09:17→17:29)
[2019-12-07] MEDS: Multivit/Ca/Min/Fe/FA 1 TAB TABLET PO SCH (09:17)
[2019-12-07] MEDS ORDERED: Fluticasone Propionate Nasal 50 MCG/SPRAY BOTTLE NS PRN (15:39)
[2019-12-07] MEDS ORDERED: *HR* Warfarin 3 MG TABLET PO ONE (18:00)
[2019-12-07] MEDS: *HR* OxyCODONE/APAP 5/325 TABLET PO PRN (22:01)
[2019-12-07] MEDS: traZODone 50 MG TABLET PO SCH (22:01)
[2019-12-07] MEDS: Melatonin 3 MG TABLET PO PRN (22:02)
[2019-12-07] MEDS: Gabapentin 300 MG CAPSULE PO SCH (22:20)
[2019-12-08 05:56] LABS: INR 2.1; Prothrombin Time 23.5 Seconds (9.4-12.1)
[2019-12-08] MEDS: Nystatin Ointment 15 GM TUBE TP SCH ×2 (08:10→21:08)
[2019-12-08] MEDS: Ascorbic Acid 500 MG TABLET PO SCH ×2 (08:10→21:07)
[2019-12-08] MEDS: carvediloL 6.25 MG TABLET PO SCH ×2 (08:10→16:57)
[2019-12-08] MEDS: Cyanocobalamin (B-12) 1,000 MCG TABLET PO SCH (08:10)
[2019-12-08] MEDS: Multivit/Ca/Min/Fe/FA 1 TAB TABLET PO SCH (08:10)
[2019-12-08] MEDS: Lactobacillus 1 EACH CAP.SPRINK PO SCH ×2 (08:10→21:08)
[2019-12-08] MEDS: Finasteride 5 MG TABLET PO SCH (08:11)
[2019-12-08] MEDS ORDERED: *HR* Warfarin 3 MG TABLET PO ONE (18:00)
[2019-12-08] MEDS: traZODone 50 MG TABLET PO SCH (21:07)
[2019-12-08] MEDS: *HR* OxyCODONE/APAP 5/325 TABLET PO PRN (21:07)
[2019-12-08] MEDS: Melatonin 3 MG TABLET PO PRN (21:08)
[2019-12-08] MEDS: Gabapentin 300 MG CAPSULE PO SCH (21:08)
[2019-12-09 05:51] LABS: Prothrombin Time 22.6 Seconds (9.4-12.1)
[2019-12-09] MEDS: Ascorbic Acid 500 MG TABLET PO SCH ×2 (08:08→22:41)
[2019-12-09] MEDS: Multivit/Ca/Min/Fe/FA 1 TAB TABLET PO SCH (08:08)
[2019-12-09] MEDS: Lactobacillus 1 EACH CAP.SPRINK PO SCH ×2 (08:08→22:40)
[2019-12-09] MEDS: Cyanocobalamin (B-12) 1,000 MCG TABLET PO SCH (08:08)
[2019-12-09] MEDS: carvediloL 6.25 MG TABLET PO SCH ×2 (08:08→16:19)
[2019-12-09] MEDS: Finasteride 5 MG TABLET PO SCH (08:08)
[2019-12-09] MEDS: Nystatin Ointment 15 GM TUBE TP SCH ×2 (12:26→22:43)
[2019-12-09] MEDS: PREDNISOLONE ACETATE 1% OP SCH (12:27)
[2019-12-09] MEDS: *HR* OxyCODONE/APAP 5/325 TABLET PO PRN ×2 (16:19→22:40)
[2019-12-09] MEDS: *HR* Warfarin 4 MG TABLET PO SCH (16:19)
[2019-12-09] MEDS: Gabapentin 300 MG CAPSULE PO SCH (22:40)
[2019-12-09] MEDS: traZODone 50 MG TABLET PO SCH (22:41)
[2019-12-09] MEDS: Melatonin 3 MG TABLET PO PRN (22:41)
[2019-12-10 05:59] LABS: INR 2.3; Prothrombin Time 25.6 Seconds (9.4-12.1)
[2019-12-10] MEDS: Cyanocobalamin (B-12) 1,000 MCG TABLET PO SCH (08:15)
[2019-12-10] MEDS: carvediloL 6.25 MG TABLET PO SCH ×2 (08:15→17:15)
[2019-12-10] MEDS: Lactobacillus 1 EACH CAP.SPRINK PO SCH ×2 (08:15→20:38)
[2019-12-10] MEDS: Ascorbic Acid 500 MG TABLET PO SCH ×2 (08:15→20:38)
[2019-12-10] MEDS: Finasteride 5 MG TABLET PO SCH (08:15)
[2019-12-10] MEDS: *HR* OxyCODONE/APAP 5/325 TABLET PO PRN ×2 (08:15→17:15)
[2019-12-10] MEDS: Multivit/Ca/Min/Fe/FA 1 TAB TABLET PO SCH (08:15)
[2019-12-10] MEDS: Nystatin Ointment 15 GM TUBE TP SCH ×2 (08:17→20:38)
[2019-12-10] MEDS: *HR* Warfarin 4 MG TABLET PO SCH (17:15)
[2019-12-10] MEDS: Melatonin 3 MG TABLET PO PRN (20:38)
[2019-12-10] MEDS: Gabapentin 300 MG CAPSULE PO SCH (20:38)
[2019-12-10] MEDS: traZODone 50 MG TABLET PO SCH (20:38)
[2019-12-11] MEDS: *HR* OxyCODONE/APAP 5/325 TABLET PO PRN ×3 (00:47→22:01)
[2019-12-11 05:48] LABS: INR 2.4; Prothrombin Time 27.1 Seconds (9.4-12.1)
[2019-12-11] MEDS: Lactobacillus 1 EACH CAP.SPRINK PO SCH ×2 (08:41→22:02)
[2019-12-11] MEDS: Cyanocobalamin (B-12) 1,000 MCG TABLET PO SCH (08:41)
[2019-12-11] MEDS: Ascorbic Acid 500 MG TABLET PO SCH ×2 (08:41→22:02)
[2019-12-11] MEDS: Finasteride 5 MG TABLET PO SCH (08:41)
[2019-12-11] MEDS: carvediloL 6.25 MG TABLET PO SCH ×2 (08:41→17:22)
[2019-12-11] MEDS: Multivit/Ca/Min/Fe/FA 1 TAB TABLET PO SCH (08:41)
[2019-12-11] MEDS: PREDNISOLONE ACETATE 1% OP SCH (08:44)
[2019-12-11] MEDS: Nystatin Ointment 15 GM TUBE TP SCH ×2 (08:44→22:02)
[2019-12-11] MEDS: *HR* Warfarin 4 MG TABLET PO SCH (17:22)
[2019-12-11] MEDS: Gabapentin 300 MG CAPSULE PO SCH (22:02)
[2019-12-11] MEDS: traZODone 50 MG TABLET PO SCH (22:02)
[2019-12-12] MEDS: *HR* OxyCODONE/APAP 5/325 TABLET PO PRN (06:11)
[2019-12-12 06:39] LABS: INR 2.3; Prothrombin Time 26.4 Seconds (9.4-12.1)
[2019-12-12 07:49] VITALS: BP 157/84
[2019-12-12] MEDS: Lactobacillus 1 EACH CAP.SPRINK PO SCH (09:00)
[2019-12-12] MEDS: Ascorbic Acid 500 MG TABLET PO SCH (09:00)
[2019-12-12] MEDS: Finasteride 5 MG TABLET PO SCH (09:00)
[2019-12-12] MEDS: carvediloL 6.25 MG TABLET PO SCH (09:00)
[2019-12-12] MEDS: Cyanocobalamin (B-12) 1,000 MCG TABLET PO SCH (09:01)
[2019-12-12] MEDS: Nystatin Ointment 15 GM TUBE TP SCH (09:01)
[2019-12-12] MEDS: Multivit/Ca/Min/Fe/FA 1 TAB TABLET PO SCH (09:01)
== END 2019-12-12 12:30 | disposition home or self-care (01) | DRG 57 ==
LOC: SUATTDRO 11-14 14:17 → INPGRE 11-14 14:17
PROVIDERS: ATTEND Family Medicine